=== PATIENT | male | born 1940 | race Caucasian/White ===

== ENCOUNTER 2022-03-18 15:04 | Outpatient (CLI) | payer MEDICARE, BC, SELFPAY ==
[2022-03-18 22:10] LABS: Chloride* 102 mmol/L (96-114); Sodium* 138 mmol/L (135-149)
[2022-03-18 22:11] LABS: Potassium* 4.3 mmol/L (3.6-5.1)
[2022-03-18 22:13] LABS: Alanine Aminotransferase* 43 U/L (4-50); Blood Urea Nitrogen* 17 mg/dL (7-30); Carbon Dioxide* 30 mmol/L (20-32); Cholesterol* 104 mg/dL (90-199); Creatinine* 0.8 mg/dL (0.5-1.5); Estimated Glomerular Filt Rate 88 ml/min
[2022-03-18 22:14] LABS: Glucose* 100 mg/dL (60-115); HDL Cholesterol* 41 mg/dL (>=40); LDL Cholesterol Calculated 50 mg/dL (<100); Triglycerides* 69 mg/dL (40-149)
== END 2022-03-18 15:05 | disposition home or self-care (01) ==
PROVIDERS: PCP Family Medicine; Visit Provider Family Medicine
DX: I10 Essential (primary) hypertension (principal); E78.5 Hyperlipidemia, unspecified; I48.91 Unspecified atrial fibrillation; R56.9 Unspecified convulsions
CPT/HCPCS: 80048; 80061; 84460

== ENCOUNTER 2023-04-22 10:43 | Outpatient (CLI) | payer MEDICARE, BC, SELFPAY | END 2023-04-22 10:44 | disposition home or self-care (01) | PROVIDERS: PCP Family Medicine; Visit Provider Family Medicine | DX: E78.5 Hyperlipidemia, unspecified (principal); I10 Essential (primary) hypertension; I69.398 Other sequelae of cerebral infarction | CPT/HCPCS: 80048; 80061; 80177; 84460 ==

== ENCOUNTER 2023-11-03 13:26 | Outpatient (CLI) | payer MEDICARE, BC, SELFPAY ==
--- OUTSIDE RECORDS SUMMARY | 2023-11-03 13:30 | XMS_ITS | Encounter Summary ---
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 [address] [place] [address] [facility] Referral ID Status Reason Start Date Expiration Date Visits Re quested Visits Authorized [id number] Closed 03/22/2023 03/21/2024 1 1 Encounter Details Date Type Department Care Team (Latest Contact Info) Description 10/21/2023 6:06 PM CDT - 10/21/2023 11:59 PM CDT Hospital Encounter Department of Radiology, [facility], in [place], [place] [address] [place] [address] Stevo Shanks M.D. 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); Lymphadenopathy; Lesion Skin Back; Melanoma Skin (HCC); Atrial Fibrillation Permanent (HCC); Loss Hearing Sensorineural; Anemia In Neoplastic Disease; Lymphocytopenia; Lymphoma Non Hodgkins Intrathoracic (HCC) Discharge Disposition: Home or Self Care Social History Tobacco Use Types Packs/Day Years Used Date Smoking Tobacco: Former Cigarettes Q uit: 02/18/1992 Smokeless Tobacco: Never Alcohol Use Standard Drinks/Week Comments No 0 (1 standard drink = 0.6 oz pur e alcohol) [facility] Utilities Answer Date Recorded In the past 12 months has e [employer], gas, oil, or water [employer] threatened to shut off services in your home? No 03/06/2023 Humiliation, Afraid, Rape, and Kick questionnair e Answer Date Recorded Within the last year, have y ou been afraid of your partner or ex-partner? No 08/07/2021 Within the last year, have y ou been humiliated or emotionally abused in other ways by your partner or ex-partner? No Within the last year, have y ou been kicked, hit, slapped, or otherwise physically hurt by your partner or ex-partner? No 08/07/2021 Within the last year, have y ou been raped or forced to have any kind of sexual activity by your partner or ex-partner? No 08/07/2021 Social Connection and Isolation Panel [NHANES] A nswer Date Recorded In a typical week, how many times do you talk on the phone with family, friends, or neighbors? Three times a week 08/07/2021 How often do you get togethe r with friends or relatives? Once a week 08/07/2021 How often do you attend chur ch or bahai services? Never 08/07/2021 Do you belong to any clubs o r organizations such as quaker groups, unions, fraternal or athletic groups, or school groups? No 08/07/2021 How often do you attend meet ings of the clubs or organizations you belong to? Never 08/07/2021 Are you , , di vorced, , never , or living with a partner? 08/07/2021 AUDIT-C Answer Date Recorded Q1: How often do you have a drink containing alc ohol? Never 08/07/2021 Average Number of Drinks Not on file 022 Frequency of Binge Drinking Not on file 07/19 Overall Financial Resource Strain (CARDIA) Answe r Date Recorded How hard is it for you to pa y for the very basics like food, housing, medical care, and heating? Not hard at all 08/07/2021 PHQ-2 Answer Date Recorded PHQ-2 Score 0 05/01/2021 [facility] - Occupational Stress Questionnaire Answer Date Recorded Do you feel stress - tense, restless, nervous, or anxious, or unable to sleep at night because your mind is troubled all the time - these days? Only a little 08/07/2021 Exercise Vital Sign Answer Date Recorde d On average, how many days pe r week do you engage in moderate to strenuous exercise (like a brisk walk)? 0 days 03/06/2023 On average, how many minutes do you engage in exercise at this level? 0 min 03/06/2023 Hunger Vital Sign Answer Date Recorded Within the past 12 months, y ou worried that your food would run out before you got the money to buy more. Never true 03/06/19 24 Within the past 12 months, t he food you bought just didn't last and you didn't have money to get more. Never true 03/06/2023 PRAPARE - Transportation Answer Date Re corded In the past 12 months, has l ack of transportation kept you from medical appointments or from getting medications? No 02/17 In the past 12 months, has l ack of transportation kept you from meetings, work, or from getting things needed for daily living? No 03/06/2023 Nutrition Answer Date Recorded On average, how many serving s of fruits and vegetables do you eat per day (serving size is equal to 1 cup or approximately the size of a tennis ball)? 0-2 03/06/2023 Dental Answer Date Recorded Dental: Regular Dentist Yes 03/06/19 Employment Answer Date Recorded Employment status Retired 03/06/2023 Housing Stability Answer Date Recorded What is your living situation today? I have a [facility] place to live 03/06/2023 Education Answer Date Recorded What is the highest level of school you have completed or the highest degree you have received? Some college, no degree 08/07/2021 Sex and Gender Information Value Date Recorded Sex Assigned at Male 08/07/2021 3:24 PM CDT Gender Identity Male 08/07/2021 3:24 PM CDT Sexual Orientation Straight 08/07/2021 3: 24 PM CDT documented as of this encounter Medications at Time of Discharge Medication Sig Dispensed Refills Start Date End Date aspirin [address] tablet TAKE 1 TABLET (81 MG TOTAL) BY MOUTH DAILY. 90 tablet 3 01/01/2023 atorvastatin (LIPITOR) 40 mg tablet Take 1 tablet (40 mg total) by mouth daily. 90 tablet 3 01/07/2022 Eliquis 5 mg tablet Take 1 tablet (5 mg total) by mouth 2 (two) times a day. 180 tablet 3 01/07/2022 levETIRAcetam (KEPPRA) 500 mg tablet Take 1 tablet (500 mg total) by mouth 2 (two) times a day. 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 Interval decrease in retroperitoneal and pelvic lymphadenopathy. 2. Mild splenomegaly. 3. Irregular heterogenous enhancement in the left anterior prostate. Please correlate with PSA levels and/or prostate MRI. Narrative 10/22/2023 7:26 AM CDT EXAM: ??CT ABDOMEN PELVIS WITH IV CONTRAST COMPARISON: ??03/12/2023 CT abdomen and pelvis FINDINGS: ??Interval decrease in pelvic and retroperitoneal lymphadenopathy; for example, retrocaval node in series 3 image 63 measures 10 mm in short axis compared to 17 mm previously. A 6 mm short axis interaortocaval lymph node (3/77) was previously 16 mm. A 6 mm short axis right external iliac node (3/113) was previously 11 mm. Few right inguinal nodes have also decreased in size, largest measuring today at 15 mm short axis (/114). No new or enlarging lymph nodes. Mild splenomegaly at 13.5 cm. Atelectasis in the right medial lung base. 5 mm nodule in the left basal lung (3/21) may be minimally larger and few stable tiny nodules in the right middle lobe (3/8, 3/12). Few adjacent foci of subpleural atelectasis. Irregular heterogeneous enhancement in the left mid gland of prostate anteriorly (3/129). Cardiomegaly. Gallstones. Fluid-filled esophagus with a small hiatus hernia. Hemangioma in left lobe of the liver. Stable adrenal nodularity. Evolving splenic infarcts. Renal cysts and bilateral cortical scarring.. Nonspecific focus of increased enhancement near the glans penis. Abdominal aortic calcifications. Normal caliber bowel. Sigmoid diverticulosis. Multilevel severe degenerative changes. Left gluteal lipoma. Procedure Note Bridgette Renee M.B.BFloydS. - 10/22/2023 EXAM: CT ABDOMEN PELVIS WITH IV CONTRAST COMPARISON: 03/12/2023 CT abdomen and pelvis FINDINGS: Interval decrease in pelvic and retroperitoneallymphadenopathy; for example, retrocaval node in series 3 image 63measures 10 mm in short axis compared to 17 mm previously. A 6 mm shortaxis interaortocaval lymph node (3/77) was previously 16 mm. A 6 mm short axis right external iliac node (3/113) was previously 11mm. Few right inguinal nodes have also decreased in size, largestmeasuring today at 15 mm short axis (/114). No new or enlarging lymphnodes. Mild splenomegaly at 13.5 cm. Atelectasis in the right medial lung base. 5 mm nodule in the left basallung (3/21) may be minimally larger and few stable tiny nodules in theright middle lobe (3/8, 3/12). Few adjacent foci of subpleuralatelectasis. Irregular heterogeneous enhancement in the left mid gland of prostateanteriorly (3/129). Cardiomegaly. Gallstones. Fluid-filled esophagus with a small hiatushernia. Hemangioma in left lobe of the liver. Stable adrenal nodularity.Evolving splenic infarcts. Renal cysts and bilateral cortical scarring..Nonspecific focus of increased enhancement near the glans penis. Abdominal aortic calcifications. Normal caliber bowel. Sigmoiddiverticulosis. Multilevel severe degenerative changes. Left gluteallipoma. IMPRESSION: 1. Interval decrease in retroperitoneal and pelvic lymphadenopathy. 2. Mild splenomegaly. 3. Irregular heterogenous enhancement in the left anterior prostate.Please correlate with PSA levels and/or prostate MRI. 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) documented in this encounter Administered Medications Inactive Administered Medications - up to 3 most recent administrations Medication Order MAR Action Action Date Dose Rate Site iohexoL 300 mg iodine/mL solution 1-200 mL (Omnipaque) 1-200 mL, intravenous, Once in imaging, contrast, Starting on Fri10/21/23 at 1815, For 1 dose, Imaging Protocol Orders, Dose per Radiant Medication Guidelines Given 10/21/2023 6:32 PM CDT 200 mL sodium chloride (PF) 0.9 % injection 1-100 mL 1-100 mL, intravenous, Once, On Fri10/21/23 at 1845, For 1 dose, Imaging Protocol Orders, Dose per Radiant Medication Guidelines Given 10/21/2023 6:32 PM CDT 50 mL documented in this encounter Additional Health Concerns Assessment Noted Time PHQ-9 Depression Total Score: 0 04/05/19 14 9:44 AM BLANKET BINDER documented as of this encounter Care Teams Prep Room Supervisor Relationship Specialty Start Date End Date Elsewhere, Pcp PCP - General Internal Medicine 02/08/22 documented as of this encounter
--- OUTSIDE RECORDS SUMMARY | 2023-11-03 13:30 | XMS_ITS | Clinical Summary ---
Author Organization [facility] Address [place], [place] [address] Care Team Providers Care Mandarin Speaking Nanny Name Role Phone Stevo Shanks Unavailable [phone] [facility], [place] Unavailable Brock Hdz MD Primary Care Provider + Allergies No known active allergies Medications Medication Sig Dispensed Refills Start Date End Date Status WalkerIndications:Panl obular emphysema (HC),Fever, unspecified fever cause,Sepsis, due to unspecified organism, unspecified whether acute organ dysfunction present (HC) Walker with front wheels for home use. 1 Each 04/26/2021 Active apixaban (ELIQUIS) 5 mg tabletIndications:prev ent thromboembolism in chronic atrial fibrillation Take 1 Tablet (5 mg) by mouth two times daily. 60 Tablet 3 12/21/2021 Active aspirin chewable 81 mg chewable tabletIndications:Apha facundo due to recent cerebral infarction Chew 1 Tablet (81 mg) by mouth once daily with a meal. 90 Tablet 3 12/22/2021 Active atorvastatin (LIPITOR) 40 mg tabletIndications:Apha facundo due to recent cerebral infarction Take 1 Tablet (40 mg) by mouth at bedtime. 30 Tablet 3 12/21/2021 Active donepeziL (ARICEPT) 5 mg tabletIndications:Apha facundo due to recent cerebral infarction Take 1 Tablet (5 mg) by mouth at bedtime. 30 Tablet 3 12/21/2021 Active levETIRAcetam (KEPPRA) 500 mg tabletIndications:Seiz ure (HC) Take 1 Tablet (500 mg) by mouth two times daily. 60 Tablet 12/23/2021 Active diclofenac topical (VOLTAREN) 1 % gelIndications:Left knee pain, unspecified chronicity Apply 2 g topically to affected area(s) four times daily. 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 2021 Dysarthria due to acute stroke 12/17/2021 Acute ischemic stroke 12/16/2021 Asymmetrical sensorineural hearing loss 10/16/19 22 Tinnitus, bilateral 10/15/2021 Obesity (BMI 30-39.9) 04/26/2021 Fever 04/24/2021 Acute encephalopathy 04/24/2021 Sepsis due to undetermined organism 04/24/2021 Insomnia 09/03/2014 COPD (chronic obstructive pulmonary disease) Neutropenic fever 09/02/2014 Pancytopenia 09/02/2014 Cough 09/02/2014 Lymphoma, non-Hodgkin's Resolved Problems Problem Noted Date Diagnosed Date Resolved Date Sepsis 04/24/2021 04/24/2021 Immunizations Name Administration Dates Next Due Influenza, High-dose Quadriv alent Inactivated 12/10/2021,11/24/2020,11/03/2019 Family History Medical History Relation Name Comments Cancer-prostate Brother Hypertension Daughter Coronary artery disease Father Diabetes Father Hyperlipidemia Father Relation Name Status Comments Brother Daughter Alive Father Social History Tobacco Use Types Packs/Day Years Used Date Smoking Tobacco: Former Cigarettes Q uit: 02/17/2009 Smokeless Tobacco: Never Alcohol Use Standard Drinks/Week Comments No 0 (1 standard drink = 0.6 oz pur e alcohol) Social Connections Answer Date Recorded Frequency of Communication with Friends and Fami ly Not on file 01/29/2022 Sex and Gender Information Value Date Recorded Sex Assigned at Not on file Gender Identity Not on file Sexual Orientation Not on file Obstetrics History Last Filed Vital Signs Vital Sign Reading Time Taken Comments Blood Pressure 101/46 01/01/2022 9:02 AM TILE BURNER Pulse 52 01/01/2022 9:02 AM TILE BURNER Temperature 36.6 ??C (97.8 ??F) 01/01/2022 9:02 AM CS T Respiratory Rate 18 01/01/2022 9:02 AM TILE BURNER Oxygen Saturation 99% 01/01/2022 9:02 AM TILE BURNER Inhaled Oxygen Concentration - - Weight 123 kg (271 lb 2.7 oz) 01/23/2022 6:55 PM TILE BURNER Height 179.4 cm (5' 10.63) 01/23/2022 6:[address] Body Mass Index 38.22 01/23/2022 6:55 PM TILE BURNER Plan of Treatment Health Maintenance Due Date Last Done Comments Pneumococcal series for age 65+ (1 of 2 - PCV) 09/20/1945 Tdap 09/20/1950 Depression screening for age 12+ 1951 BMI (ht and wt on same day) for age 18+ 09/20/1957 Zoster (shingles) series for age 50+ (1 of 2) 09/20/1958 Tetanus booster 1959 RSV vaccine for adults or (1 - 1-dose 60+ series) 1999 Medicare Wellness for age 65+ 09/20/2004 COVID-19 vaccine series ( season) 2023 12/10/2021, 05/18/2021, 11/10/2020, Additional history exists Influenza for age 65+ 10/19/2023 12/10/2021 , 11/24/2020, 11/03/2019 Insurance Payer Benefit Plan / Group Subscriber ID Effective Dates Phone Address Type MEDICARE PART A - HB USE ONLY MEDICARE PART A HB ONLY [id number] 09/17/2004-Pres ent ATTN: CLAIMS [address] [place] [address] MEDICARE PART B - HB USE ONLY MEDICARE PART B HB ONLY [id number] 09/17/2004-Pres ent ATTN: CLAIMS [address] [place] [address] MEDICARE PART A - HB USE ONLY MEDICARE PART A HB ONLY [id number] 09/17/2004-Pres ent ATTN: CLAIMS [address] [place] [address] MEDICARE PART B - HB USE ONLY MEDICARE PART B HB ONLY [id number] 09/17/2004-Pres ent ATTN: CLAIMS [address] [place] [address] [facility] OPTUM [place] CC[place] [id number] 02/17/2021-Pres ent [place] OPTUM [address] [place] [address] MEDICARE PPS HC MEDICARE PPS [id number] 09/17/2004-Pres ent [address] [place] [address] BLUE CROSS MR MR BC [place] [id number] 02/17/2013-Pres ent [address] [place] [address] BLUE CROSS MR BLUE CROSS [place] BLUE MR PB ONLY [id number] 02/18/2016-Pres ent [address] [address] [place] [address] BLUE CROSS BLUE CROSS [place] BLUE HB ONLY [id number] 02/18/2016-Pres ent [address] [address] [place] [address] Advance Directives * Full Code (Latest Code Status on File) Date Activated Date Inactivated Comments 12/21/2021 9:42 PM 01/01/2022 4:15 PM Question Answer Comments Code Status Discussion: Reviewed Preferences * Full Code Date Activated Date Inactivated Comments 12/17/2021 12:23 AM 12/21/2021 5:48 PM Question Answer Comments Code Status Discussion: Unable to Assess Preferences, Provider to review later * DNR Date Activated Date Inactivated Comments 04/24/2021 3:27 AM 04/26/2021 3:06 PM Question Answer Comments Code Status Discussion: Reviewed Preferences * Full Code Date Activated Date Inactivated Comments 04/24/2021 3:05 AM 04/24/2021 3:27 AM Question Answer Comments Code Status Discussion: Reviewed Preferences * Full Code Date Activated Date Inactivated Comments 09/01/2014 8:53 PM 09/04/2014 1:53 PM Question Answer Comments Code Status Discussion: Discussed Care Teams Mandarin Speaking Nanny Relationship Specialty Start Date End Date Brock Hdz MD [address] [place] [id number] PCP - General Family Practice 01/29/22 Stevo Shanks [address] [place] [phone] 09/02/14 [facility] [address] [place] [address] 12/24/21
--- OUTSIDE RECORDS SUMMARY | 2023-11-03 13:30 | XMS_ITS | Encounter Summary ---
Author Organization [facility] Address [address] [place] [id number] Care Team Providers Care Bog Worker Name Role Phone Elsewhere, Pcp Primary Care Provider Unavailabl e Encounter Details Date Type Department Care Team (Latest Contact Info) Description 10/21/2023 5:30 PM CDT - 10/21/2023 6:05 PM CDT Hospital Encounter Department of Laboratory Medicine and Pathology, [facility], in [place], [place] [address] [place] [address] Stevo Shanks M.D. [address] [place] [address] Follicular Lymphoma Grade II Extranodal And Solid [...] drink = 0.6 oz pur e alcohol) [facility] Utilities Answer Date Recorded In the past 12 months has [employer], gas, oil, or water company threatened to shut off services in your [...] week 08/07/2021 How often do you attend [facility] or hoahaoism services? Never 08/07/2021 Do you belong to any clubs o r organizations such as episcopal groups, unions, fraternal or athletic groups, or [...] Answer Date Recorded PHQ-2 Score 0 05/01/2021 [facility] [place] [facility] Occupat ional Health - Occupational Stress [...] money to buy more. Never true 03/06/19 Within the past 12 months, t he [...] your living situation today? 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) Lymphadenopathy Lesion Skin Back Melanoma Skin (HCC) Atrial Fibrillation Permanent (HCC) 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) POTASSIUM, S/P Routine 10/21/2023 5:55 PM CDT 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) Lymphadenopathy Lesion Skin Back Melanoma Skin (HCC) Atrial Fibrillation Permanent (HCC) 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) ALKALINE PHOSPHATASE, S/P Routine 10/21/2023 5:55 PM CDT 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) Lymphadenopathy Lesion Skin Back Melanoma Skin (HCC) Atrial Fibrillation Permanent (HCC) 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) LACTATE DEHYDROGENASE (LD), S Routine 10/21/2023 5:55 PM CDT 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) Lymphadenopathy Lesion Skin Back Melanoma Skin (HCC) Atrial Fibrillation Permanent (HCC) 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) CREATININE WITH EGFR, S/P Routine 10/21/2023 5:55 PM CDT 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) Lymphadenopathy Lesion Skin Back Melanoma Skin (HCC) Atrial Fibrillation Permanent (HCC) 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) CALCIUM, TOT, S/P Routine 10/21/2023 5:5 5 PM CDT 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) Lymphadenopathy Lesion Skin Back Melanoma Skin (HCC) Atrial Fibrillation Permanent (HCC) 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 LAB BLOOD ADD-ON [facility] [address] [place] [address], [facility] [address] [place] [address] * (ABNORMAL) LD (Lactate Dehydrogenase) (10/21/2023 5:55 PM CDT) Lactate Dehydrogenase (LD), S 223(H) 122 - 222 U/L 10/21/2023 6:46 PM CDT DTL Blood (Blood, Venous) 10/21/2023 5:55 PM CDT 10/21/2023 6:13 PM CDT Stevo Shanks M.D. LAB BLOOD NON AD D-ON Performing Organization Address [facility] Co de Phone Number [facility] [address] [place], [place] [id number] [place] [address] [place] [address] * Creatinine with Estimated GFR (10/21/2023 5:55 PM CDT) Creatinine 0.96 0.74 - 1.35 mg/dL 10/21/2023 6:46 PM CDT DTL Estimated GFR (eGFR) 78 >=60 mL/min/BSA 10/21/2023 6:46 PM CDT DTL Comment: Estimated GFR calculated using the 2020 CKD_EPI creatinine equation. Blood (Blood, Venous) 10/21/2023 5:55 PM CDT 10/21/2023 6:13 PM CDT Stevo Shanks M.D. LAB BLOOD ADD-ON Performing Organization Address [facility]/ZIP Co de Phone Number [facility] [address] [place] [address], [facility] [address] * (ABNORMAL) CBC with Differential, Blood (10/21/2023 5:55 PM CDT) Hemoglobin 12.5(L) 13.2 - 16.6 g/dL 10/21/2023 6:18 PM CDT DTL Hematocrit 37.8(L) 38.3 - 48.6 % 10/21/2023 6:18 PM CDT DTL Erythrocytes 4.16(L) 4.35 - 5.65 x10(12)/L 10/21/2023 6:18 PM CDT DTL MCV 90.9 78.2 - 97.9 fL 10/21/2023 6:18 PM CDT DTL RBC Distrib Width 13.7 11.8 - 14.5 % 10/21/2023 6:18 PM CDT DTL Platelet Count 191 135 - 317 x10(9)/L 10/21/2023 6:18 PM CDT DTL Leukocytes 6.9 3.4 - 9.6 x10(9)/L 10/21/2023 6:18 PM CDT DTL Neutrophils 5.01 1.56 - 6.45 x10(9)/L 10/21/2023 6:18 PM CDT DHPM Lymphocytes 1.10 0.95 - 3.07 x10(9)/L 10/21/2023 6:18 PM CDT DTL Monocytes 0.55 0.26 - 0.81 x10(9)/L 10/21/2023 6:18 PM CDT DTL Eosinophils 0.15 0.03 - 0.48 x10(9)/L 10/21/2023 6:18 PM CDT DTL Basophils 0.04 0.01 - 0.08 x10(9)/L 10/21/2023 6:18 PM CDT DTL Blood (Blood, Venous) 10/21/2023 5:55 PM CDT 10/21/2023 6:02 PM CDT Stevo Shanks M.D. LAB BLOOD ADD-ON [facility] [address] [place] [address], [facility] DTL [facility] [address] [place] [address] [facility] [address] [place] [address] * Calcium, Total (10/21/2023 5:55 PM CDT) Calcium, Total, S 9.3 8.8 - 10.2 mg/dL 10/21/2023 6:46 PM CDT DTL Blood (Blood, Venous) 10/21/2023 5:55 PM CDT 10/21/2023 6:13 PM CDT Stevo Shanks M.D. LAB BLOOD ADD-ON Performing Organization Address City/[facility]/ZIP Co de Phone Number [facility] [address] [place] [address], [facility] [address] [place] [address] * Bilirubin, Total (10/21/2023 5:55 PM CDT) Bilirubin, Total, S 0.8 0.0 - 1.2 mg/dL 10/21/2023 6:46 PM CDT DTL Blood (Blood, Venous) 10/21/2023 5:55 PM CDT 10/21/2023 6:13 PM CDT Stevo Shanks M.D. LAB BLOOD ADD-ON Performing Organization Address City/[facility] Co de Phone Number [facility] [address] [place] [address], [facility] [address] [place] [address] * AST (Aspartate Aminotransferase) (10/21/2023 5:55 PM CDT) Aspartate Aminotransferase (AST), S 46 8 - 48 U/L 10/21/2023 6:46 PM CDT DT Blood (Blood, Venous) 10/21/2023 5:55 PM CDT 10/21/2023 6:13 PM CDT Stevo Shanks M.D. LAB BLOOD ADD-ON Performing Organization Address City/[facility]/ZIP Co de Phone Number [facility] [address] [place] [address], [facility] [address] [place] [address] * Alkaline Phosphatase (10/21/2023 5:55 PM CDT) Alkaline Phosphatase, S 101 40 - 129 U/L 10/21/2023 6:46 PM CDT DTL Blood (Blood, Venous) 10/21/2023 5:55 PM CDT 10/21/2023 6:13 PM CDT Stevo Shanks M.D. 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
--- OUTSIDE RECORDS SUMMARY | 2023-11-03 13:30 | XMS_ITS | Encounter Summary ---
Author Organization 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 [address] [place] [address] [facility] Referral ID Status Reason Start Date Expiration Date Visits Re quested Visits Authorized [id number] Closed 03/22/2023 09/20/2024 1 1 Encounter Details Date Type Department Care Team (Latest Contact Info) Description 10/22/2023 2:00 PM CDT Office Visit Division of Hematology in [place], [place] [address] [place] [id number] Stevo Shanks M.D. 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); Lymphadenopathy; Lesion Skin Back; Melanoma Skin (HCC); Atrial Fibrillation Permanent (HCC); Loss Hearing Sensorineural; Anemia In Neoplastic Disease; Lymphocytopenia; Lymphoma Non Hodgkins Intrathoracic (HCC) Social History Tobacco Use Types Packs/Day Years Used Date Smoking Tobacco: Former Cigarettes Q uit: 02/18/1992 Smokeless Tobacco: Never Alcohol Use Standard Drinks/Week Comments No 0 (1 standard drink = 0.6 oz pur e alcohol) [facility] Utilities Answer Date Recorded In the past 12 months has [employer] electric, gas, oil, or water company threatened [...] 08/07/2021 How often do you attend chur or rastafarian services? Never 08/07/2021 Do you belong to any clubs o r organizations such as orthodox groups, unions, fraternal or athletic groups, or [...] Answer Date Recorded PHQ-2 Score 0 05/01/2021 [facility] [place] of Occupat ional Health - Occupational Stress [...] your living situation today? I have a [facility] place to live 03/06/2023 Education Answer [...] PM CDT documented as of this encounter Last Filed Vital Signs Vital Sign Reading Time Taken Comments Blood Pressure 160/90 10/22/2023 1:55 PM CDT Pulse 67 10/22/2023 1:55 PM CDT Temperature 36.2 ??C (97.2 ??F) 10/22/2023 1:55 PM CD T Respiratory Rate - - Oxygen Saturation 96% 10/22/2023 1:55 PM CDT Inhaled Oxygen Concentration - - Weight 119 kg (262 lb 12.6 oz) 10/22/2023 1:55 P M CDT Height 173.9 cm (5' 8.47) 10/22/2023 1:55 PM CD T Body Mass Index 39.42 10/22/2023 1:55 PM CDT documented in this encounter Progress Notes * Stevo Shanks M.D. - 10/22/2023 2:00 PM CDT SUBJECTIVE CHIEF COMPLAINT / REASON FOR VISIT Stone Torres is a 83 y.o. 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 HISTORY OF PRESENT ILLNESS Oncology History Overview Note 2000: The patient had a CT of the chest on March 13, 2000, which demonstrated tiny inflammatory subpleural nodules as well as a 1.1 x 1.5-cm mass in the left lower lobe. Serial CT scans were done starting on July 03, 2000, December 31, 2000, July 08, 2001, June 25, 2002, and July 08, 2003. The patient subsequently had a CT scan of the chest performed on December 16, 2007. A bronchoscopy with EBUS was performed by Dr. Brock Kellogg on April 30, 2013. The pathology was interpreted as atypical lymphoid population suggestive of a B-cell non-Hodgkin lymphoma. There were increased numbersof [id number] cells. This was all we could interpret. The patient was referred to the Lymphoma Clinic. He denied B symptoms. The CT scan in 2007 demonstrated a mass in the mediastinum on December 16, 2007, which was 1.8 cm in diameter. On February 12, 2010, it was 3.5 cm in diameter, and he then subsequently had a CT scan of the chest on April 07, 2013, here which demonstrated an 8.0 x 6.5-cm mass which was confirmed on PET. The mass on the CT was 7.5 x 6.1 cm (series 2, image 57). In the CT fusion piece of the PET on series 1005/96, there was an 8.7 cm x 6.1- cm middle mediastinal mass. In addition, there was a right inguinal lymph node which was 2.4 x 2.8 cm (series 1005/241). The patient underwent an EBUS which demonstrated a lymphoproliferative disorder but was not further classifiable. The patient denied B symptoms. The patient underwent a mediastinoscopy by Dr. Remington Serna on May 11, 2013. The biopsies were quite generous and revealed scattered noncaseating granulomas. The nodes were 2.00 x 1.50 x 0.07 cm, 1.3 x 1.0 x 0.4 cm, 3.5 x 1.9 x 0.7 cm, 7.5 x 1.5 x 0.4 cm, and0.6 x 0.4 x 0.3 cm. The bone marrow aspirate and biopsy revealed two nonparatrabecular benign lymphoid aggregates. The fungal serologies, CELESTINA level, and rheumatoid factor were unremarkable. The patient was followed. The patient presented to Dr. Brock Moffett on April 04, 2014, with a lump in his right inguinal area. This was present since the beginning of March at least. A CT scan of the abdomen and leg revealed significant adenopathy. There was no evidence of deep venous thrombosis on the ultrasound. The patient was referred. The patient was evaluated in the Lymphoma Clinic on May 02, 2014. At that time, he had a 10.0 x 4.5-cm mass in the right groin. The CT scan on series 2, image 120 shows a 4.1 x 2.2-cm lymph node. On series 4, image 39, there were 4.8 x 3.5 x 2.6-cm and 3.5 x 2.6-cm lymph nodes. The patient was referred for a CT-directed biopsy. The patient denied B symptoms. The platelet count was mildly decreased at 144,000. The patient was evaluated on May 02, 2014.At that time, he had a 4 x 10-cm fullness in the right inguinal area by calipers. An ultrasound biopsy of the right inguinal area was performed on May 05, 2014. This demonstrated follicular lymphoma, grade 2, with focal (approximately 10%) follicular lymphoma, grade 3A. The Ki-67 reached 70% to 80% in the neoplastic germinal centers. The centroblast ranged from 5% to 15% and focally exceeded 15% per high-power field. The pathology was evaluated by Drs. Lolita Edwards and Jaya Doshi. The bone marrow was slightly hypercellular with mild panhyperplasia and no morphologic evidence of lymphoma. A PET scan demonstrated marked interval progression from April 28, 2013. The previously described3-cm right inguinal node had an SUV max of 20.6 with an SUV max of 23.5 surrounded by bulky FDG-avid lymphadenopathy involving the mid right thigh lymph nodes and superiorly to right inguinal, right external iliac, and common iliac nodes. There was edema of the lower extremity. There was new FDG activity in the retroperitoneum, retrocrural, paraesophageal, subcarinal, right paratracheal, and bilateral superior mediastinal disease. There was a new pleural effusion. The patient returned on May 26, 2014. In the interim, he noted a new cough of two weeks' duration. The LDH was normal at 165. He had a normochromic normocytic anemia of 12.8 g/dL. The chemistries were unremarkable with the exception of a glucose of 111. The lymph nodes in the right groin were of similar size. The patient was treated with R-CHOP chemotherapy for six cycles followed by maintenance rituximab for 12 cycles. The patient has been followed regularly. 05/11/2018: The patient returned. He denied lymphadenopathy. On April 23, 2018 he slipped and fell onice in his garage. He has no radicular symptoms but had concerns about his lumbar back area. November 10, 2018: The patient returned. At that time he denied B symptoms. There is no new palpable lymphadenopathy. The laboratory studies were unremarkable. The patient was observed. July 19, 2019: The patient returned. He denied B symptoms. There is no new palpable lymphadenopathy.He had a 7 by 6 cm lesion of his left thigh and a 7 x 4 cm lesion of his anterior tibia. He was difficult to discern whether not these elevations and fullness were vascular in nature verses subcutaneous tumors. The LDH was normal. An ultrasound was pursued. October 27, 2019: The patient returned. He denied B symptoms. There is no evidence of recurrent disease. The patient was observed. Was having very significant joint pain, especially the left hip. Wewill request an orthopedic evaluation. January,: The patient developed a lesion on his right thigh. April 26, 2021-May 01, 2021: The patient was hospitalized with the diagnosis of sepsis. The day before admission, while watching television, he went up to go to the restroom and had significant pain on the right side of his leg and was unable to walk. He felt weak. EMS was called. The patient came to the hospital. His temperature is a 102.9??. He had mild confusion. The hemoglobin is 11.5 grams/deciliter, platelet count 365800, and he had a respiratory alkalosis. COVID-19 in influenza PCR were negative. CT scan of the head revealed age- related atrophy. A CT scan of the abdomen and pelvis demonstrated a right axillary node and inguinal adenopathy. An ultrasound of the lower extremities revealed no DVT. The patient was treated with Zosyn intravenously. He was dismissed on Levaquin. Cultures were negative. May 15, 2021: The patient returned. He stated that he felt good. The lesion on the right thigh was 4.5 x 4.5 cm and had a purplish discoloration. It was rounded. There is no palpable lymphadenopathy. The laboratory evaluation revealed unremarkable CBC. The creatinine was 1.26, up from 0.95. A biopsy was arranged. July 02, 2021: A punch biopsy was performed of the thigh. This demonstrated follicular lymphoma. August 07, 2021: The patient returned. The patient has a new mass on the right thigh. It measured 5.5x 4 cm. The blood tests were unremarkable. The CT scan was overall unremarkable. The outside CT scan of May 12, 2021 was reviewed. There is a single enlarged right inguinal lymph node which had notsignificantly changed since October 05, 2014. A bone marrow aspirate and biopsy was performed. May 06, 2022: The patient returned. He denied B symptoms. The laboratory studies revealed the following. The hemoglobin was 12.1 gm/dL. The LDH 179 U/L. The patient had a stroke and seizure on with a markedly elevated systolic blood pressure. He had a seizure one week later. He was alsofound to be in atrial fibrillation. The patient's was concerned about a lesion of his back which was benign. This was a deep comedone. There was no palpable lymphadenopathy. A CT scan of the abdomen and pelvis revealed a right external iliac node which measured 1.9 cm in size. There is a rightinguinal node that increased from 1.9 cm to 2.5 cm. And interaortocaval node went from 1.1 cm to 0.7 cm. Observation was recommended. August 13, 2022: The patient returned. He was coughing with rhinorrhea. The patient had no symptoms related to lymphoma. The laboratory values revealed a hemoglobin 12.0 grams/deciliter with an otherwise unremarkable CBC other than a very minimal lymphopenia at 870 absolute lymphocyte count. The metabolic panel was normal with a normal LDH at 211 units/liter. The CT scan of the pelvis demonstrated an increase in size of the right inguinal node which went from 2.5 cm to 3.0 cm. The retroperitonealnode went from 0.6 cm to 1.1 cm. The physical examination revealed a 2.5 cm right inguinal lymph node as measured with calipers. Observation was recommended. March 12, 2023: The patient returned. The physical examination revealed no evidence of active lymphoma. The LDH was 166 U/L. The CT scan of the abdomen and pelvis demonstrated that the left hepaticlesion that was 5 x 3.9 cm was unchanged consistent with a hemangioma. The aortocaval node went from 0.7 x 1.1 cm to 2 x 2.4 cm. The right external iliac node went from 2.2 cm down to 1.8 cm. A rightinguinal node went from 3.5 x 2.9 cm to the same dimension. Observation was recommended. October 22, 2023: The patient returned. When laying in bed and I turn, it is like a sharp pain. When I am walking, it doesn't bother me. He denied radiation. It is on the left side. I feel good actually. The hemoglobin went from 11.9 g/dL and now 12.5. The metabolic panel was normal. The LDH was 223 U/L. There was no palpable lymphadenopathy. A CT scan of the abdomen demonstrated interval decrease in the retrocaval adenopathy which went from 1.7- 1.0 cm. An aortocaval node went from 1.6 cm to 0.6 cm. A right external iliac node went from 1.1 cm to 0.6 cm. A right inguinal node decreased in size to 1.5 cm. The spleen was 13.5 cm. Observation was recommended. Melanoma Skin (HCC) 02/11/2010 Initial Diagnosis Melanoma Lymphoma Non Hodgkins Intrathoracic (HCC) Other The CT scan in 2007 demonstrated a mass in the mediastinum on December 16, 2007, which was 1.8 cm indiameter. On February 12, 2010, it was 3.5 cm in diameter, and he then subsequently had a CT scan of the chest on April 07, 2013, here which demonstrated an 8.0 x 6.5-cm mass which was confirmed on PET. The mass on the CT was 7.5 x 6.1 cm (series 2, image 57). In the CT fusion piece of the PET on series 1005/96, there was an 8.7 cm x 6.1-cm middle mediastinal mass. In addition, there was a right inguinal lymph node which was 2.4 x 2.8 cm (series 1005/241). The patient underwent an EBUS whichdemonstrated a lymphoproliferative disorder but was not further classifiable. The patient denied B symptoms. The patient underwent a mediastinoscopy by Dr. Remington Serna on May 11, 2013. The biopsies were quite generous and revealed scattered noncaseating granulomas. The nodes were 2.00 x 1.50 x 0.07 cm, 1.3 x 1.0 x 0.4 cm, 3.5 x 1.9 x 0.7 cm, 7.5 x 1.5 x 0.4 cm, and 0.6 x 0.4 x 0.3 cm. The bone marrow aspirate and biopsy revealed two nonparatrabecular benign lymphoid aggregates. The fungal serologies, CELESTINA level, and rheumatoid factor were unremarkable. The patient was followed. The patientpresented to Dr. Brock Moffett on April 04, 2014, with a lump in his right inguinal area. This was present since the beginning of March at least. A CT scan of the abdomen and leg revealed significant adenopathy. There was no evidence of deep venous thrombosis on the ultrasound. The patient was referred. The patient was evaluated in the Lymphoma Clinic on May 02, 2014. At that time, he had a 10.0 x 4.5-cm mass in the right groin. The CT scan on series 2, image 120 shows a 4.1 x 2.2-cm lymph node. On series 4, image 39, there were 4.8 x 3.5 x 2.6-cm and 3.5 x 2.6-cm lymph nodes. The patient was referred for a CT-directed biopsy. The patient denied B symptoms. The platelet count was mildly decreased at 144,000. The patient was evaluated on May 02, 2014. At that time, he had a 4 x 10-cm fullness in the right inguinal area by calipers. An ultrasound biopsy of the right inguinal area was performed on May 05, 2014. This demonstrated follicular lymphoma, grade 2, with focal (approximately 10%) follicular lymphoma, grade 3A. The Ki-67 reached 70% to 80% in the neoplastic germinal centers. The centroblast ranged from 5% to 15% and focally exceeded 15% per high-power field. The pathology was evaluated by Drs. Lolita Edwards and Jaya Doshi. The bone marrow was slightly hypercellular with mild panhyperplasia and no morphologic evidence of lymphoma. A PET scan demonstrated marked interval progression from April 28, 2013. The previously described 3-cm right inguinal node had an SUV max of 20.6 with an SUV max of 23.5 surrounded by bulky FDG-avid lymphadenopathy involving the mid right thigh lymph nodes and superiorly to right inguinal, right external iliac, and common iliac nodes. There was edema of the lower extremity. There was new FDG activity in the retroperitoneum, retrocrural, paraesophageal, subcarinal, right paratracheal, and bilateral superior mediastinal disease. There was a new pleural effusion. The patient returned on May 26, 2014. In the interim, he noted a new cough of two weeks' duration. The LDH was normal at 165. He had a normochromic normocytic anemia of 12.8 g/dL. The chemistries were unremarkable with the exception of a glucose of 111. Thelymph nodes in the right groin were of similar size. The patient was treated with R-CHOP chemotherapy 03/16/2017 Initial Diagnosis Lymphoma Non Hodgkins Intrathoracic (HCC) 07/02/2021 Biopsy/Pathology Right medial thigh, Skin punch biopsy: Cutaneous involvement by patient's known follicular lymphoma, grade 2 COMMENT The histologic findings demonstrate a dense diffuse dermal atypical lymphoid infiltrate with a prominent Grenz zone. The atypical lymphoid cells are comprised of an admixture of centrocytes and centroblasts. The atypical lymphoid cells are immunoreactive for CD 20 and co-express BCL2, CD10 and BCL6. CD 21 highlights residual follicular dendritic cell meshworks. The atypical lymphoid cells are non immunoreactive for MUM1, MYC and IgD. CD3 stain highlights admixed T lymphocytes. Ki 67 proliferation index is high (60-70%) Immunohistochemical stains for kappa and lambda immunoglobulin light chains demonstrates polytypic expression. The morphologic and immunophenotypic features are most compatible with the patient's known follicular lymphoma, grade 2 with a predominantly diffuse growth pattern. Clinical and pathological correlation is recommended. Clinical note and photos reviewed. Lymphoma Nodular Multiple Site (HCC) (Resolved) 05/05/2014 Initial Diagnosis Follicular lymphoma, grade 2 with focal (approximately 10%) follicular lymphoma grade 3A. The lymphnode architecture is effaced by a nodular proliferation of a mixture of small centrocytes and largecentroblasts-type cells. These cells express CD20, CD10, BCL6, CD23, and BCL2. Ki-67 proliferative staining is variable, reaching 70-80% in neoplastic germinal centers and less than 10% in the surrounding areas. The number of centroblasts ranges from 5-15 and focally exceeds 15 per high powered field. 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 - Performance score 1 Skin: - Benign keratoses; senile purpura Hematologic: - See HPI The following systems were negative: Eyes, ENT, Respiratory, Cardiovascular, Gastrointestinal, Genitourinary, Musculoskeletal, Neurological OBJECTIVE PHYSICAL EXAM Vitals reviewed. Constitutional Appearance: Normal appearance. He is well-developed. HENT Head: Normocephalic. Mouth/Throat: Pharynx: No oropharyngeal exudate. Eyes General: Lids are normal. Conjunctiva/sclera: Conjunctivae normal. Cardiovascular Rate and Rhythm: Normal rate and regular rhythm. Heart sounds: Normal heart sounds. No murmur heard. Pulmonary Effort: Pulmonary effort is normal. No respiratory distress. Breath sounds: Normal breath sounds. No decreased breath sounds. Abdominal Palpations: Abdomen is soft. Tenderness: There is no abdominal tenderness. Lymphadenopathy Cervical: No cervical adenopathy. Upper Body: Right upper body: No supraclavicular or axillary adenopathy. Left upper body: No supraclavicular or axillary adenopathy. Lower Body: No right inguinal adenopathy. No left inguinal adenopathy. Skin General: Skin is warm and dry. Findings: No rash. Neurological General: No focal deficit present. Mental Status: He is alert and oriented to person, place, and time. Psychiatric Mood and Affect: Mood normal. Behavior: Behavior normal. Thought Content: Thought content normal. Judgment: Judgment normal. 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 We will observe the patient. I recommended he return in 1 year. At that time we will repeat a CT scan of the abdomen and pelvis, performed a physical examination and do blood tests. #2 Lymphadenopathy As above. #3 Lesion Skin Back This was benign. #4 Melanoma Skin (HCC) There was no evidence of recurrent melanoma. #5 Atrial Fibrillation Permanent (HCC) This was clinically stable. #6 Loss Hearing Sensorineural This was clinically stable. #7 Anemia In Neoplastic Disease This was clinically stable. #8 Lymphocytopenia This was clinically stable. #9 Lymphoma Non Hodgkins Intrathoracic (HCC) As per 1. 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) Lymphadenopathy Lesion Skin Back Melanoma Skin (HCC) Atrial Fibrillation Permanent (HCC) 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) Expected: 11/01/2024, Expires: 01/31/2025 Bilirubin, Total Lab Routine 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) Lymphadenopathy Lesion Skin Back Melanoma Skin (HCC) Atrial Fibrillation Permanent (HCC) 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) Expected: 11/01/2024, Expires: 01/31/2025 Calcium, Total Lab Routine 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) Lymphadenopathy Lesion Skin Back Melanoma Skin (HCC) Atrial Fibrillation Permanent (HCC) 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) Expected: 11/01/2024, Expires: 01/31/2025 CBC with Differential, Blood Lab Routine 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) Lymphadenopathy Lesion Skin Back Melanoma Skin (HCC) Atrial Fibrillation Permanent (HCC) 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) Expected: 11/01/2024, Expires: 01/31/2025 Creatinine with Estimated GFR Lab Routine 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) Lymphadenopathy Lesion Skin Back Melanoma Skin (HCC) Atrial Fibrillation Permanent (HCC) 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) Expected: 11/01/2024, Expires: 01/31/2025 LD (Lactate Dehydrogenase) Lab Routine 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) Lymphadenopathy Lesion Skin Back Melanoma Skin (HCC) Atrial Fibrillation Permanent (HCC) 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) Expected: 11/01/2024, Expires: 01/31/2025 Potassium Lab Routine 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) Lymphadenopathy Lesion Skin Back Melanoma Skin (HCC) Atrial Fibrillation Permanent (HCC) 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) Expected: 11/01/2024, Expires: 01/31/2025 CT Abdomen Pelvis with IV Contrast Imaging RAD - Routine (most inpatients and all outpatients) 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) Lymphadenopathy Lesion Skin Back Melanoma Skin (HCC) Atrial Fibrillation Permanent (HCC) 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) Expected: 05/01/2024, Expires: 01/31/2025 Scheduled Referrals Name Type Priority Associated Diagnoses Orde r Schedule Hematology office visit (clinic) [place]; Lymphoma; General Outpatient Referral Routine 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) Lymphadenopathy Lesion Skin Back Melanoma Skin (HCC) Atrial Fibrillation Permanent (HCC) 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) Expected: 11/01/2024 (Approximate), Expires: 01/31/2025 documented as of this encounter Visit Diagnoses Diagnosis 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
--- OUTSIDE RECORDS SUMMARY | 2023-11-03 13:30 | XMS_ITS | Encounter Summary ---
Author Organization [facility] Address [address] [place] [address] Care Team Providers Care Operations Dispatcher Name Role Phone Elsewhere, Pcp Primary Care Provider Unavailabl e Reason for Visit * Reason Onset Date Comments Pre-visit Intake 10/17/2023 Encounter Details Date Type Department Care Team (Latest Contact Info) Description 10/17/2023 1:45 PM CDT Clinical Communication Virtual Review in [place], [place] [address] [place] [address] Pre-visit Intake Social History Tobacco Use Types Packs/Day Years Used Date Smoking Tobacco: Former Cigarettes Q uit: 02/18/1992 Smokeless Tobacco: Never Alcohol Use Standard Drinks/Week Comments No 0 (1 standard drink = 0.6 oz pur e alcohol) [facility] Utilities Answer Date Recorded In the past 12 months has [employer], gas, oil, or water [employer] threatened to shut off services in your [...] often do you attend chur ch or confucianism services? Never 08/07/2021 Do you belong to any clubs o r organizations such as tenriism groups, unions, fraternal or athletic groups, or [...] Answer Date Recorded PHQ-2 Score 0 05/01/2021 [facility] - Occupational Stress [...] your living situation today? I have a [facility] place to live 03/06/2023 Education [...] PM CDT documented as of this encounter Plan of Treatment Not on file documented as of this encounter Visit Diagnoses Not on filedocumented in this encounter Additional Health Concerns Assessment Noted Time PHQ-9 Depression Total Score: 0 04/05/19 14 9:44 AM AREA SUPERVISOR documented as of this encounter Care Teams Operations Dispatcher Relationship Specialty Start Date End Date Elsewhere, Pcp PCP - General Internal Medicine 02/08/22 documented as of this encounter
--- OUTSIDE RECORDS SUMMARY | 2023-11-03 13:30 | XMS_ITS ---
Author Organization [facility] Address [address] [place] [address] Care Team Providers Care Conference Translator Name Role Phone Unavailable Unavailable Unavailable Surgery Details Not on file Complications Check Surgery Details section. Procedure Estimated Blood Loss Check Surgery Details section. Procedure Findings Check Surgery Details section. Procedure Specimens Taken Check Surgery Details section.
--- OUTSIDE RECORDS SUMMARY | 2023-11-03 13:30 | XMS_ITS | Referral Summary ---
Author Organization [facility] Address [address] [place] [address] Care Team Providers Care Inspector Balance Bridge Name Role Phone Elsewhere, Pcp Primary Care Provider Unavailabl e Source Comments Patient records contain information from all sites at [facility]. For routine questions regarding patient records, call [phone] during business hours, M-F 8:00 AM - 5:00 PM Central Time. Record requests for emergency care only can be directed to [phone] at any time.[facility] Encounters Date Type Department Care Team Description 10/22/2023 2:00 PM CDT Office Visit Division of Hematology in [place], [place] [address] [place] [address] Stevo Shanks M.D. 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 90 tablet 3 01/07/2022 Active Eliquis 5 mg tablet Take 1 tablet (5 mg total) by mouth 2 (two) times a day. 180 tablet 3 01/07/2022 Active levETIRAcetam (KEPPRA) 500 mg tablet Take 1 tablet (500 mg total) by mouth 2 (two) times a day. 180 tablet 3 01/07/[address] tablet TAKE 1 TABLET (81 MG TOTAL) BY MOUTH DAILY. 90 tablet 3 01/01/2023 Active donepeziL (ARICEPT) 5 mg tablet Take 5 mg by mouth daily. 12/21/2021 10/17/2023 Discontinued (Therapy completed) diclofenac sodium (VOLTAREN) 1 % gel Apply 2 g topically 4 (four) times a day as needed. 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 He has an appointment to be seen by Hematology at [facility] on May [address] Shanks. He states he is going to have the inguinal node removed. Primary Osteoarthritis Hip Bilateral 05/17/2020 Primary Osteoarthritis Knee Bilateral 05/17/2020 Morbid Obesity Body Mass Index 40.0-44.9 Adult 0 05/17/2020 Overview (05/01/2021): Obesity Assessment & Plan (05/01/2021 1:21 PM CDT): His weight is 120.45 kg. Thrombosis Deep Vein Personal History 07/29/2019 Anticoagulant Therapy 07/29/2019 Thrombophlebitis Superficial Lower Extremity Lef t 07/28/2019 Mass Leg Left 07/19/2019 Lymphoma Non Hodgkins Intrathoracic 03/16/2017 Chronic Obstructive Pulmonary Disease Without Ex acerbation 09/03/2014 Overview (05/01/2021): Chronic obstructive pulmonary disease Assessment & Plan (05/01/2021 1:20 PM CDT): He has a smoking history of 31 years smoking ? 3/4 of a pack per day ? . He started smoking at age 20 and quit at age 51. He is stating he has some left lung lower congestion. He is able to bring up de luna colored mucus. He is breathing easy. He does not want an inhaler. We went over CT scan of the chest which was normal on April 23 2021 Loss Hearing Sensorineural 03/18/2011 Melanoma Skin 02/11/2010 Overview (07/09/2016): Melanoma of skin, Back Diverticulosis Colon 02/07/2010 Hypertension Essential Primary 10/18/2003 Assessment & Plan (05/01/2021 1:23 PM CDT): He is currently on no antihypertensive medications. His blood pressure in the clinic was 156/84. He will make an appointment to be seen in 2 weeks by the CHIEF ACCOUNTANT for blood pressure recheck. Resolved Problems Problem Noted Date Diagnosed Date Resolved Date Morbid Obesity 12/27/2021 01/07/2022 Sepsis 05/01/2021 01/07/2022 Overview (05/01/2021): He was hospitalized for sepsis of undetermined organism on 04/23/2021. He is here for a TCM visit Assessment & Plan (05/01/2021 12:48 PM CDT): He is finishing a 7 day Levaquin 500 mg which was started on April 27. He is tolerating it well. Pain Sacroiliac 05/17/2020 01/07/2022 Pain Hip Left 05/02/2020 01/07/2022 Pain Hand Left 04/27/2019 01/07/2022 Overview (04/27/2019): Fell while caring 12 pack of soda in each hand. He tripped over a doorjam on the floor hitting his head and landing on his left hand. This happened 2 weeks ago. He has use some ice. He does have pain with movement and edema. Assessment & Plan (04/27/2019 1:36 PM CDT): X-ray shows a fracture of the 5th metacarpal with probable intra-articular extension. He was placed in a thumb spica splint to secure the hand in the wrist. He has an appointment tomorrow with orthopedics in [place]. Infection Upper Respiratory 12/31/2017 12/11/2018 Gastroesophageal Reflux Disease 10/27/2017 12/11/2018 Bronchitis Acute 03/16/2017 12/11/2018 Insomnia 09/03/2014 12/11/2018 Neutropenia 09/02/2014 12/11/2018 Pancytopenia 09/02/2014 12/11/2018 Lymphoma Nodular Multiple Site 05/08/2014 12/11/2018 Dermatitis 07/18/2013 12/11/2018 Nodule Pulmonary 07/18/2013 12/11/2018 Hyperlipidemia 04/26/2013 12/11/2018 Mass Hilum 04/16/2013 12/11/2018 Mass Chest 04/16/2013 12/11/2018 Keratosis Seborrheic 04/07/2013 019 Impaired Fasting Glucose 04/05/2013 Nocturia 04/05/2013 12/11/2018 Keratosis Actinic 01/21/2011 12/11/2018 Bradycardia Sinus 02/11/2010 12/11/2018 Overview (07/09/2016): Sinus bradycardia Dysfunction Erectile 02/11/2010 019 Reflux Esophageal 02/11/2010 12/11/2018 Hernia Hiatal 02/11/2010 12/11/2018 Overview (03/16/2017): EGD 05/17/2005 Renal Cyst Disease 02/11/2010 9 Lipoma Skin 02/11/2010 12/11/2018 Overview (03/16/2017): S/P excision Hemangioma Liver 02/11/2010 12/11/2018 Apnea Sleep Obstructive 02/11/201011/18 Onychomycosis 02/11/2010 12/11/2018 Primary Osteoarthritis Spine 02/11/2010 12/11/2018 Rosacea 02/11/2010 12/11/2018 Asymptomatic Varicose Veins Of Left Lower Extremity 02/11/2010 12/11/2018 Wart 02/11/2010 12/11/2018 Hyperkalemia 02/07/2010 12/11/2018 Polyp Colon 02/07/2010 12/11/2018 Tumor Skin Benign 03/29/2009 12/11/2018 Immunizations Name Administration Dates Next Due DT, Pediatric 11/17/2006 HZV (ZOSTAVAX) 01/17/2014 Influenza Split 11/17/2012 Influenza high dose QV(65 ye ars or older) (PF) 12/10/2021,11/24/2020,11/03/2019 Influenza, Seasonal, Injectable 10/30/2011,12/18 Influenza, Unspecified 12/10/2017,2013,11/24/2012,2010,11/20/2009 PPSV23 01/17/2014,11/11/2005 Pneumococcal, Unspecified 11/18/2011 SARS-COV-2 (COVID-19) - PFIZ ER (Discontinued)(12 years or older) 11/10/2020,04/06/2020,03/16/2020 SARS-COV-2 (COVID-19) - PFIZ ER TS(Discontinued)(12 years or older) 05/18/2021 Td Preservative Free (TENIVA C, DECAVAC) 11/17/2006 Td, (Adult) Unspecified 03/17/1996 Tdap 01/17/2014,11/17/2009 influenza trivalent high dos e (HD)(PF) 11/27/2018,11/13/2016,11/21/2015,2014 Social History Tobacco Use Types Packs/Day Years Used Date Smoking Tobacco: Former Cigarettes Q uit: 02/18/1992 Smokeless Tobacco: Never Alcohol Use Standard Drinks/Week Comments No 0 (1 standard drink = 0.6 oz pur e alcohol) [facility] Utilities Answer Date Recorded In the past 12 months has e [employer], gas, oil, or water [employer] threatened to shut off services in your [...] often do you attend chur ch or orthodox services? Never 08/07/2021 Do you belong to any clubs o r organizations such as samaritan groups, unions, fraternal or athletic groups, or [...] Answer Date Recorded PHQ-2 Score 0 05/01/2021 [facility] - Occupational Stress Questionnaire Answer Date Recorded [...] your living situation today? I have a [facility] place to live 03/06/2023 Education Answer Date Recorded What is the highest level of school you have completed or the highest degree you have received? Some college, no degree 08/07/2021 Sex and Gender Information Value Date Recorded Sex Assigned at Male 08/07/2021 3:24 PM CDT Gender Identity Male 08/07/2021 3:24 PM CDT Sexual Orientation Straight 08/07/2021 3: 24 PM CDT Last Filed Vital Signs Vital Sign Reading Time Taken Comments Blood Pressure 160/90 10/22/2023 1:55 PM CDT Pulse 67 10/22/2023 1:55 PM CDT Temperature 36.2 ??C (97.2 ??F) 10/22/2023 1:55 PM CD T Respiratory Rate 17 01/07/2022 4:31 PM [employer]CRUM[employer] Oxygen Saturation 96% 10/22/2023 1:55 PM CDT Inhaled Oxygen Concentration - - Weight 119 kg (262 lb 12.6 oz) 10/22/2023 1:55 P M CDT Height 173.9 cm (5' 8.47) 10/22/2023 1:55 PM CD T Body Mass Index 39.42 10/22/2023 1:55 PM CDT Plan of Treatment Not on file Procedures Procedure Name Priority Date/Time Associated Diagnosis [...] Disease Lymphocytopenia Lymphoma Non Hodgkins Intrathoracic (HCC) CBC WITH DIFFERENTIAL, B Routine 10/21/2023 5:55 PM CDT 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) Lymphadenopathy Lesion Skin Back Melanoma Skin (HCC) Atrial Fibrillation Permanent (HCC) 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 Procedure Note Bridgette Renee M.B.B.S. - 10/22/2023 EXAM: CT ABDOMEN PELVIS WITH [...] with PSA levels and/or prostate MRI. Stevo Shanks M.D. IMG CT PROCEDURE S * (ABNORMAL) CBC with Differential, Blood (10/21/2023 [...] PM CDT 10/21/2023 6:02 PM CDT Stevo M Habermann M.D. LAB BLOOD ADD-ON [facility] [address] [place] [address], [facility] [address] [place] [address] [facility] [address] [place] [address] * AST (Aspartate Aminotransferase) (10/21/2023 5:55 PM CDT) Aspartate Aminotransferase (AST), S 46 8 - 48 U/L 10/21/2023 6:46 PM CDT DTL Blood (Blood, Venous) 10/21/2023 5:55 PM CDT 10/21/2023 6:13 PM CDT Stevo Shanks M.D. LAB BLOOD ADD-ON Performing Organization Address City/[facility]/ZIP Co de Phone Number [facility] [address] [place], [place] [address] [address] [place] [address] * Potassium (10/21/2023 5:55 PM CDT) Potassium, S 4.3 3.6 - 5.2 mmol/L 10/21/2023 6:46 PM CDT DTL Blood (Blood, Venous) 10/21/2023 5:55 PM CDT 10/21/2023 6:13 PM CDT Stevo Shanks M.D. LAB BLOOD ADD-ON [facility] [address] [place], [place] [address] [address] [place] [address] * Alkaline Phosphatase (10/21/2023 5:55 PM CDT) Alkaline Phosphatase, S 101 40 - 129 U/L 10/21/2023 6:46 PM CDT DTL Blood (Blood, Venous) 10/21/2023 5:55 PM CDT 10/21/2023 6:13 PM CDT Stevo Shanks M.D. LAB BLOOD ADD-ON [facility] [address] [place] [address], [facility] [address] [place] [address] * (ABNORMAL) LD (Lactate Dehydrogenase) (10/21/2023 5:55 PM CDT) Lactate Dehydrogenase (LD), S 223(H) 122 - 222 U/L 10/21/2023 6:46 PM CDT DTL Blood (Blood, Venous) 10/21/2023 5:55 PM CDT 10/21/2023 6:13 PM CDT Stevo Shanks M.D. LAB BLOOD NON AD D-ON Performing Organization Address City/[facility]/ZIP Co de Phone Number [facility] [address] [place] [address], [facility] [address] [place] [address] * Creatinine with Estimated GFR (10/21/2023 5:55 PM CDT) Creatinine 0.96 0.74 - 1.35 mg/dL 10/21/2023 6:46 PM CDT DTL Estimated GFR (eGFR) 78 >=60 mL/min/BSA 10/21/2023 6:46 PM CDT DTL Comment: Estimated GFR calculated using the 2020 CKD_EPI creatinine equation. Blood (Blood, Venous) 10/21/2023 5:55 PM CDT 10/21/2023 6:13 PM CDT Stevo Shanks M.D. LAB BLOOD ADD-ON [facility] [address] [place] [address], [facility] [address] [place] [address] * Calcium, Total (10/21/2023 5:55 PM CDT) Calcium, Total, S 9.3 8.8 - 10.2 mg/dL 10/21/2023 6:46 PM CDT DTL Blood (Blood, Venous) 10/21/2023 5:55 PM CDT 10/21/2023 6:13 PM CDT Stevo Shanks M.D. LAB BLOOD ADD-ON Performing Organization Address City/[facility]/ZIP Co de Phone Number [facility] [address] [place] [address], [facility] [address] [place] [address] * Bilirubin, Total (10/21/2023 5:55 PM CDT) Bilirubin, Total, S 0.8 0.0 - 1.2 mg/dL 10/21/2023 6:46 PM CDT DTL Blood (Blood, Venous) 10/21/2023 5:55 PM CDT 10/21/2023 6:13 PM CDT Stevo Shanks M.D. LAB BLOOD ADD-ON [facility] [address] [place] [address], [facility] [address] [place] [address] from Last 3 Months Care Teams Inspector Balance Bridge Relationship Specialty Start Date End Date Elsewhere, Pcp PCP - General Internal Medicine 02/08/22
--- OUTSIDE RECORDS SUMMARY | 2023-11-03 13:30 | XMS_ITS ---
Author Organization [facility] Address [address] [place] [address] Care Team Providers Care Synthetic Staple Extruder Name Role Phone Elsewhere, Pcp Primary Care Provider Unavailabl e Active Problems Problem Noted Date Diagnosed Date [...] appointment to be seen by Hematology at [facility] on May [address] Shanks. [...] be seen in 2 weeks by the RIVET FLUNKY for blood pressure recheck. Current Oncology Plans No current plan information found. Past Plans No past plan information found. Radiation Treatments * Plan Last Treated On Elapsed Days Fractions Treated Prescribed Fraction Dose Prescribed Total Dose 1_RtMedThig h 09/07/2021 1 2 of 2 400 cGy 800 cGy Reference Point Last Treated On Elapsed Days Session Dose Total Dose [id number] 09/07/2021 1 400 cGy 800 cGy Resolved Problems Problem Noted Date Diagnosed Date [...] has an appointment tomorrow with orthopedics in [place]. Infection Upper Respiratory 12/31/2017 12/11/2018 Gastroesophageal Reflux [...]
--- OUTSIDE RECORDS SUMMARY | 2023-11-03 13:30 | XMS_ITS | Clinical Summary ---
Author Organization [facility] Address [address] [place] [address] Care Team Providers Care Cigar Packer Name Role Phone Elsewhere, Pcp Primary Care Provider Unavailabl e Source Comments Patient records contain information from all sites at [facility]. For routine questions regarding patient records, call [phone] during business hours, M-F 8:00 AM - 5:00 PM Central Time. Record requests for emergency care only can be directed to [phone] at any time.[facility] Allergies No known active allergies Medications Medication [...] appointment to be seen by Hematology at [facility] on May [address] Shanks. He [...] be seen in 2 weeks by the [employer] for blood pressure recheck. Resolved Problems Problem [...] has an appointment tomorrow with orthopedics in [place]. Infection Upper Respiratory 12/31/2017 12/11/2018 Gastroesophageal Reflux [...] 02/07/2010 12/11/2018 Tumor Skin Benign 03/29/2009 12/11/2018 Encounters Date Type Department Care Team Description 10/22/2023 2:00 PM CDT Office Visit Division of Hematology in [place], [place] [address] [place] [phone] Stevo Shanks M.D. 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); Lymphadenopathy; Lesion Skin Back; Melanoma Skin (HCC); Atrial Fibrillation Permanent (HCC); Loss Hearing Sensorineural; Anemia In Neoplastic Disease; Lymphocytopenia; Lymphoma Non Hodgkins Intrathoracic (HCC) Discharge Disposition: Home or Self Care 10/17/2023 1:45 PM CDT Clinical Communication Virtual Review in [place], [place] [address] [place] [address] Pre-visit Intake from Last 3 Months Immunizations Name Administration Dates Next Due DT, [...] influenza trivalent high dos e (HD)(PF) 11/27/2018,11/13/2016,11/21/2015,2014 Family History Medical History Relation Name Comments Prostate cancer Brother Joao Torres Jr. Hypertension Daughter 1 Tena Brian Hypertension Daughter 2 Bypass graft Father Joao Torres Coronary artery disease Father Joao collier ased-bypass surgery was the treatment Diabetes Father Joao Torres Hyperlipidemia Father Joao Torres Hypertension Father Joao Torres Coronary artery disease Mother Chicho collier ased -pace maker was used for treatment Varicose Veins Mother Chicho Torres Sleep apnea Son Jeremy Torres Relation Name Status Comments Brother Joao Torres Jr. Daughter 1 Tenagustabo Torres Daughter 2 Father Joao Torres Mother Chicho Torres Son Jeremy Torres Social History Tobacco Use Types Packs/Day Years Used Date Smoking Tobacco: Former Cigarettes Q uit: 02/18/1992 Smokeless Tobacco: Never Alcohol Use Standard Drinks/Week Comments No 0 (1 standard drink = 0.6 oz pur e alcohol) [facility] Utilities Answer Date Recorded In the past 12 months has e [employer], gas, oil, or water [email or web address] threatened to shut off services in your [...] often do you attend chur ch or sabianism services? Never 08/07/2021 Do you belong to any clubs o r organizations such as hinduism groups, unions, fraternal or athletic groups, or [...] Answer Date Recorded PHQ-2 Score 0 05/01/2021 [facility] [employer] - Occupational Stress [...] T Respiratory Rate 17 01/07/2022 4:31 PM [employer] Oxygen Saturation 96% 10/22/2023 1:55 PM CDT Inhaled Oxygen Concentration - - Weight 119 kg (262 lb 12.6 oz) 10/22/2023 1:55 P M CDT Height 173.9 cm (5' 8.47) 10/22/2023 1:55 PM CD T Body Mass Index 39.42 10/22/2023 1:55 PM CDT Plan of Treatment Health Maintenance Due Date Last Done Comments Zoster Vaccines (1 of 2) 03/14/2014 01/17/2014 Pneumococcal vaccine (65+ years) (3 of 3 - PCV) 01/17/2015 01/17/2014, 11/18/2011, 11/11/2005 Depression Screening (Annual PHQ-2) 02/17/2023 Fall Risk Screen (Annual) 02/17/2023 COVID-19 Vaccine ( season) 2023 12/10/2021, 05/18/2021, 11/10/2020, Additional history exists Influenza Vaccine (#1) 2023 , 12/10/2021, 11/24/2020, Additional history exists DTaP,Tdap,and Td Vaccines (4 - Td or Tdap) 01/18/2024 01/17/2014, 11/17/2009, 11/17/2006, Additional history exists Office Visit for Blood Pressure Check / Re-check 01/21/2024 10/22/2023 Colonoscopy Discontinued 04/18/2011 (Perf ormed elsewhere), 04/04/2011, 06/29/2002 Colorectal Cancer Surveillance Discontinued CT Colonography Discontinued Cologuard Discontinued HPV Vaccines Aged Out No longer eligi ble based on patient's age to complete this topic Procedures Procedure Name Priority Date/Time Associated Diagnosis [...] levels and/or prostate MRI. Stevo Shanks M.D. [place] CT PROCEDURE S * (ABNORMAL) CBC with [...] CDT Stevo Shanks M.D. LAB BLOOD ADD-ON [facility] [address] [place] [address], [facility] DTL [facility] [address] [place] [address] DHPM [facility] [address] [place] [address] * AST (Aspartate Aminotransferase) (10/21/2023 5:55 PM CDT) Aspartate Aminotransferase (AST), S 46 8 - 48 U/L 10/21/2023 6:46 PM CDT DTL Blood (Blood, Venous) 10/21/2023 5:55 PM CDT 10/21/2023 6:13 PM CDT Stevo Shanks M.D. LAB BLOOD ADD-ON [facility] [address] [place], [place] [id number] [place] [address] [address] [place] [address] * Potassium (10/21/2023 5:55 PM CDT) Potassium, S 4.3 3.6 - 5.2 mmol/L 10/21/2023 6:46 PM CDT DTL Blood (Blood, Venous) 10/21/2023 5:55 PM CDT 10/21/2023 6:13 PM CDT Stevo Shanks M.D. LAB BLOOD ADD-ON Performing Organization Address City/[facility]/ZIP Co de Phone Number [facility] [address] [place] [address], [facility] [address] [place] [address] * Alkaline Phosphatase (10/21/2023 5:55 PM CDT) Alkaline Phosphatase, S 101 40 - 129 U/L 10/21/2023 6:46 PM CDT DTL Blood (Blood, Venous) 10/21/2023 5:55 PM CDT 10/21/2023 6:13 PM CDT Stevo Shanks M.D. LAB BLOOD ADD-ON [facility] [address] [place] [address], [facility] [place] [address] [place] [address] * (ABNORMAL) LD (Lactate Dehydrogenase) (10/21/2023 5:55 PM CDT) Lactate Dehydrogenase (LD), S 223(H) 122 - 222 U/L 10/21/2023 6:46 PM CDT DTL Blood (Blood, Venous) 10/21/2023 5:55 PM CDT 10/21/2023 6:13 PM CDT Stevo Shanks M.D. LAB BLOOD NON AD D-ON [facility] [address] [place], [place] [id number] [place] [address] [facility] [address] [place] [address] * Creatinine with Estimated GFR (10/21/2023 5:55 PM CDT) Creatinine 0.96 0.74 - 1.35 mg/dL 10/21/2023 6:46 PM CDT DTL Estimated GFR (eGFR) 78 >=60 mL/min/BSA 10/21/2023 6:46 PM CDT DTL Comment: Estimated GFR calculated using the 2020 CKD_EPI creatinine equation. Blood (Blood, Venous) 10/21/2023 5:55 PM CDT 10/21/2023 6:13 PM CDT Stevo Shanks M.D. LAB BLOOD ADD-ON [facility] [address] [place], [place] [address] [address] [place] [address] * Calcium, Total (10/21/2023 5:55 PM CDT) Calcium, Total, S 9.3 8.8 - 10.2 mg/dL 10/21/2023 6:46 PM CDT DTL Blood (Blood, Venous) 10/21/2023 5:55 PM CDT 10/21/2023 6:13 PM CDT Stevo Shanks M.D. LAB BLOOD ADD-ON [facility] [address] [place] [address], [facility] [address] [place] [address] * Bilirubin, Total (10/21/2023 5:55 PM CDT) Bilirubin, Total, S 0.8 0.0 - 1.2 mg/dL 10/21/2023 6:46 PM CDT DTL Blood (Blood, Venous) 10/21/2023 5:55 PM CDT 10/21/2023 6:13 PM CDT Stevo Shanks M.D. LAB BLOOD ADD-ON Performing Organization Address City/[facility]/ZIP Co de Phone Number [facility] [address] [place] [address], [facility] [address] [place] [address] from Last 3 Months Care Teams Cigar Packer Relationship Specialty Start Date End Date Elsewhere, Pcp PCP - General Internal Medicine 02/08/22
--- OUTSIDE RECORDS SUMMARY | 2023-11-03 13:31 | XMS_ITS | Continuity of Care Document ---
Author Name [facility] Organization [facility] Care Team Providers Care State Appellate Clerk Name Role Phone [facility] Unavailable Unavailable Problems Combined list of problems from Department of Defense and Veterans Affairs facilities. It does not include entries that were removed or entered in error. Problem Status Onset Date Problem Type Date of Resolution Comments Source Basal cell carcinoma of skin Active Condition [facility] Elevated blood pressure Active Condition [facility] History of colonoscopy Active Condition Jan 17, 2014 Entered By: ABRAHAN CANDELARIO Comment: 2010 [facility] Malignant melanoma Active Condition Jan 17, 2014 Entered By: ABRAHAN CANDELARIO Comment: Excised 2008, [facility] f/u [facility] Morbid obesity Active Condition [facility] Polyp of colon Active Condition [facility] Pulmonary sarcoidosis Active Condition Jan 17, 2014 Entered By: ABRAHAN CANDELARIO Comment: [facility] f/u, '14 Bx [facility] Sensorineural Hearing Loss * (ICD-9-CM 389.10) Active Condition [facility] Tinnitus * (ICD-9-CM 388.30) Active Condition [facility] Immunizations Combined list of available immunizations from the Department of Defense and Veterans Affairs facilities. Immunization Series Date Given Administered By Site Reaction Lot Number CVX Code Drug Prep Cook Status Comments Source PNEUMOCOCCAL POLYSACCHARID E PPV23 2013 33 complet ed 000 [facility] TDAP 2013 115 complet ed 000 [facility] ZOSTER LIVE 2013 121 complet ed 000 [facility] INFLUENZA, UNSPECIFIED FORMULATION 2013 88 complet ed [facility] INFLUENZA, UNSPECIFIED FORMULATION 2009 88 complet ed [facility] Social History Combined list of available smoking, tobacco, and other social history from Department of Defense and Veterans Affairs facilities. Social History Type Response Date Comment Sourc e Tobacco smoking status NHIS FORMER TOBACCO USER 7Y OR GREATER 01/17/2014 [facility] History of tobacco use FORMER TOBACCO US ER 7Y OR GREATER 03/23/2010 [facility]
== END 2023-11-03 13:27 | disposition home or self-care (01) ==
LOC: FBOREF 13:27
PROVIDERS: PCP Family Medicine; Visit Provider Family Medicine
DX: I63.9 Cerebral infarction, unspecified (principal); E78.2 Mixed hyperlipidemia; I10 Essential (primary) hypertension
CPT/HCPCS: 80061

== ENCOUNTER 2024-09-28 16:06 | Outpatient (CLI) | payer MEDICARE, BC, SELFPAY | END 2024-09-28 16:07 | disposition home or self-care (01) | PROVIDERS: PCP Family Medicine; Visit Provider Family Medicine | DX: E78.2 Mixed hyperlipidemia (principal); I10 Essential (primary) hypertension; D50.0 Iron deficiency anemia secondary to blood loss (chronic) | CPT/HCPCS: 80048; 80061; 84460; 85025 ==